=== PATIENT | female | born 1990 | race Caucasian/White ===

== ENCOUNTER → 2018-02-24 10:07 | Outpatient (CLI) | payer MEDICAID, SELFPAY ==
[2018-02-24 12:22] LABS: Absolute Lymphocyte Count 1.11 X10^3/ul (0.83-4.51); Absolute Neutrophil Count 1.8 X10^3/uL (2.0-7.7); Basophil# 0.02 X10^3/uL; Basophil% 0.6 % (0-1); Eosinophil# 0.08 X10^3/uL; Eosinophils% 2.4 % (0-5); Hematocrit 38.7 % (37-47); Hemoglobin 12.8 g/dl (12.0-15.0); Lymphocyte # 1.11 X10^3/ul (4.0); Lymphocyte % 33.1 % (19-41); Mean Corp Hgb Conc 33.1 g/gl (32-36); Mean Corpuscular Hgb 29.6 pg (27.0-32.0); Mean Corpuscular Volume 89.4 fL (81-99); Mean Platelet Vol. 12.6 fl (6.2-12.0); Monocyte# 0.33 X10^3/uL; Monocyte% 9.9 % (0-10); Neutrophil # 1.81 X10^3/uL (2.7-7.7); Platelet Count 192 K/mm3 (150-450); RBC Distribution Width CV 13.3 % (11.6-14.6); Red Blood Count 4.33 M/mm3 (4.2-5.4); White Blood Count 3.4 K/mm3 (4.4-11.0)
[2018-02-24 12:26] LABS: ALB/GLOB Ratio 1.1 RATIO (0.9-2.4); AST(SGOT) 15 U/L (15-37); Alanine Aminotransfer ALT/SGPT 22 U/L (13-56); Alkaline Phosphatase 63 U/L (45-117); Anion Gap 8 (5-15); BUN 11 mg/dL (7-18); BUN/Creat Ratio 13.9 RATIO (10-20); Calcium,Total 9.1 mg/dL (8.5-10.1); Chloride 107 mmol/L (98-107); Creatinine, Serum 0.79 mg/dL (0.55-1.02); EST Glomerular Filtration Rate 92 mL/min (>60); Est Glom Filt Rate - Afr Amer 112 mL/min (>60); Ferritin 14 ng/mL (8-252); Globulin 3.8 g/dL (2.2-4.2); Glucose 91 mg/dL (74-106); Potassium 3.8 mmol/L (3.5-5.1); Protein, Total 7.8 g/dL (6.4-8.2); Sodium Level 140 mmol/L (136-145); T4 Free Direct 0.99 ng/dL (0.76-1.46); Thyroid Stim Hormone (TSH) 2.01 uIU/mL (0.358-3.74)
[2018-02-24 12:27] LABS: POSITIVE COUNT NO; POSITIVE DIFFERENTIAL NO; POSITIVE MORPHOLOGY NO
== END ==
PROVIDERS: Family Provider Family Medicine; PCP Family Medicine; Visit Provider Family Medicine
DX: F41.1 Generalized anxiety disorder (principal); K59.00 Constipation, unspecified
CPT/HCPCS: 36415; 80053; 82728; 84439; 84443; 85025

== ENCOUNTER 2018-08-12 18:25 | Emergency (ER) | payer MEDICAID, SELFPAY ==
[2018-08-12 18:29] VITALS: BP 108/80; PULSE 76; RESP 18; TEMP 36.9; O2SAT 96; BMI 24.2
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
[2018-08-12] MEDS: LORazepam 0.5 MG Tablet PO (19:20)
[2018-08-12] MEDS: Diphth,Pertuss(Acell),Tet Vac 0.5 ML Vial IM (19:20)
[2018-08-12] MEDS: Ketorolac 30 MG/ML Syringe IM (19:20)
[2018-08-12 21:01] VITALS: BP 118/70; PULSE 70; RESP 14; O2SAT 98
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
[2018-08-12 22:42] VITALS: RESP 18
== END 2018-08-12 22:43 | disposition home or self-care (01) ==
PROVIDERS: Emergency Provider Emergency Medicine; Family Provider Family Medicine; PCP Family Medicine
DX: S09.90XA Unspecified injury of head, initial encounter (principal); S13.9XXA Sprain of joints and ligaments of unspecified parts of neck, initial encounter; V49.88XA Car occupant (driver) (passenger) injured in other specified transport accidents, initial encounter; Y93.89 Activity, other specified; Y92.410 Unspecified street and highway as the place of occurrence of the external cause; F41.9 Anxiety disorder, unspecified
CPT/HCPCS: 70450; 72125; 90471; 90715; 96372; 99284

== ENCOUNTER → 2019-02-24 16:43 | Outpatient (CLI) | payer MEDICAID, SELFPAY ==
[2019-02-24 15:13] VITALS: BMI 24.2
[2019-03-02 17:41] LABS: HPV Reflexed? NOT INDICATED
== END ==
PROVIDERS: Family Provider Family Medicine; PCP Family Medicine; Referring Provider Obstetrics & Gynecology; Visit Provider Obstetrics & Gynecology
DX: Z12.4 Encounter for screening for malignant neoplasm of cervix (principal)
CPT/HCPCS: 87624; 88175; G0145

== ENCOUNTER → 2019-10-15 12:16 | Outpatient (CLI) | payer MEDICAID, SELFPAY ==
[2019-02-24 15:13] VITALS: BMI 24.2
--- NOTE | 2019-10-15 12:21 | US_ITS ---
STUDY: ULTRASOUND OF THE FEMALE PELVIS - COMPLETE REASON FOR EXAM: Female, 29 years old. . Chronic left lower quadrant pain. LMP: September 30, 2019. TECHNIQUE: Transabdominal and Transvaginal TECHNICAL QUALITY: Adequate. COMPARISON: None. FINDINGS: The uterus is anteverted and is in a midline position. The uterus measures 9.3 cm x 5.3 cm x 4.1 cm. There is a 6 mm x 8 mm x 6 mm slightly echogenic focus with a small amount of fluid in the region of the cervix. This may represent a polyp. The endometrium measures 14 mm in thickness, and is hyperechoic. There is no demonstrated endometrial mass. There is no demonstrated myometrial mass. I.U.D. - The patient does not have an I.U.D. The right ovary is visualized. The right ovary measures 2.9 cm x 2.8 cm x 2.4 cm. There is a dominant follicle measuring 1.8 cm x 1.4 cm x 1 cm There is no visualized right adnexal mass or complex lesion. There is normal arterial and normal venous vascularity. The left ovary is visualized. The left ovary measures 2.3 cm x 2.4 cm x 1.2 cm. Dominant follicle in the ovary measuring 1.1 cm x 1 cm x 0.7 cm. There is no visualized left adnexal mass or complex lesion. There is normal arterial and normal venous vascularity. There is no fluid in the cul-de-sac. Polycystic ovary disease: No. US/Transvaginal Non- IMPRESSION: Findings suggestive of a 6 mm x 8 mm x 6 mm polyp in the endocervical canal. Small bilateral ovarian follicles. Electronically Signed: Toby Reece, at 14:46 EST , Service support ,
--- NOTE | 2019-10-15 12:21 | US_ITS ---
STUDY: ULTRASOUND OF THE FEMALE PELVIS - COMPLETE REASON FOR EXAM: Female, 29 years old. . Chronic left lower quadrant pain. LMP: September 30, 2019. TECHNIQUE: Transabdominal and Transvaginal TECHNICAL QUALITY: Adequate. COMPARISON: None. FINDINGS: The uterus is anteverted and is in a midline position. The uterus measures 9.3 cm x 5.3 cm x 4.1 cm. There is a 6 mm x 8 mm x 6 mm slightly echogenic focus with a small amount of fluid in the region of the cervix. This may represent a polyp. The endometrium measures 14 mm in thickness, and is hyperechoic. There is no demonstrated endometrial mass. There is no demonstrated myometrial mass. I.U.D. - The patient does not have an I.U.D. The right ovary is visualized. The right ovary measures 2.9 cm x 2.8 cm x 2.4 cm. There is a dominant follicle measuring 1.8 cm x 1.4 cm x 1 cm There is no visualized right adnexal mass or complex lesion. There is normal arterial and normal venous vascularity. The left ovary is visualized. The left ovary measures 2.3 cm x 2.4 cm x 1.2 cm. Dominant follicle in the ovary measuring 1.1 cm x 1 cm x 0.7 cm. There is no visualized left adnexal mass or complex lesion. There is normal arterial and normal venous vascularity. There is no fluid in the cul-de-sac. Polycystic ovary disease: No. US/Pelvic (Non ) IMPRESSION: Findings suggestive of a 6 mm x 8 mm x 6 mm polyp in the endocervical canal. Small bilateral ovarian follicles. Electronically Signed: Toby Reece, at 14:46 EST , Service support ,
== END ==
PROVIDERS: Family Provider Family Medicine; PCP Family Medicine; Referring Provider Family Medicine; Visit Provider Family Medicine
DX: N83.02 Follicular cyst of left ovary (principal); N83.01 Follicular cyst of right ovary
CPT/HCPCS: 76830; 76856; 93976

== ENCOUNTER → 2020-02-16 10:53 | Outpatient (CLI) | payer MEDICAID, SELFPAY ==
[2019-12-24 13:07] VITALS: BMI 24.2
== END ==
PROVIDERS: PCP Family Medicine; Referring Provider Nurse Practitioner Family; Visit Provider Nurse Practitioner Family
DX: R50.9 Fever, unspecified (principal); M79.10 Myalgia, unspecified site; R53.83 Other fatigue; R11.0 Nausea
CPT/HCPCS: 87804; 94799

== ENCOUNTER 2020-03-05 17:05 | Emergency (ER) | payer MEDICAID, SELFPAY ==
[2019-12-24 13:07] VITALS: BMI 24.2
[2020-03-05 17:06] VITALS: BP 126/67; PULSE 78; RESP 16; TEMP 36.7; BMI 23.3
[2020-03-05 18:24] LABS: Mucous, Urine 0 SEEN /hpf (<or=2+)
[2020-03-05] MEDS: 0.9% Normal Saline 1,000 ML 1000 ML IV (18:24)
[2020-03-05 18:34] LABS: Absolute Lymphocyte Count 0.73 X10^3/uL (0.83-4.51); Absolute Neutrophil Count 6.8 X10^3/uL (2.0-7.7); Basophil# 0.02 X10^3/uL; Basophil% 0.2 % (0-1); Eosinophil# 0.02 X10^3/uL; Eosinophils% 0.2 % (0-5); Hematocrit 38.2 % (37-47); Hemoglobin 12.5 g/dL (12.0-15.0); Lymphocyte # 0.73 X10^3/ul (4.0); Lymphocyte % 8.5 % (19-41); Mean Corp Hgb Conc 32.7 g/dL (32-36); Mean Corpuscular Hgb 31.5 pg (27.0-32.0); Mean Corpuscular Volume 96.2 fL (81-99); Mean Platelet Vol. 11.9 fl (6.2-12.0); Monocyte# 0.92 X10^3/uL; Monocyte% 10.7 % (0-10); NRBC Flagged by Analyzer 0 % (0-5); Neutrophil # 6.84 X10^3/uL (2.7-7.7); Platelet Count 168 K/mm3 (150-450); RBC Distribution Width CV 13.1 % (11.6-14.6); RBC Distribution Width SD 45.7 fl (35.1-43.9); Red Blood Count 3.97 M/mm3 (4.2-5.4); White Blood Count 8.6 K/mm3 (4.4-11.0)
[2020-03-05 18:39] LABS: Color, Urine Straw (Yellow); Glucose, Dipstick Normal (Normal); Ketone-Dipstick Negative (Negative); Leukocyte Esterase-Dipstick 500 /ul (Negative); Nitrite-Dipstick Negative (Negative); Occult Blood-Urine 50 /ul (Negative); Protein-Dipstick 15 mg/dl (Negative); Specific Gravity, Urine 1.005 (1.002-1.030); Urine Bilirubin Dipstick Negative (Negative); Urine Clarity Sl. Cloudy (Clear); Urine Urobilinogen Normal (Normal)
[2020-03-05 18:47] LABS: White Blood Cells 50-100 SEEN /hpf (0-5)
[2020-03-05 18:48] LABS: Bacteria 2+ /hpf (None Seen); Lactic Acid 1.2 mmol/L (0.4-1.9); Red Blood Cells-Urine 0-5 SEEN /hpf (0-5); Squamous Epithelial Cells - UA 0-5 SEEN /hpf (5-10)
[2020-03-05 18:49] LABS: Internal QC Validated? YES +Cl - CLEAR BKGD; Pregnancy, Serum, hCG Quali. NEGATIVE Negative
--- NOTE | 2020-03-05 18:49 | ED.VISSUMM ---
- ER Visit Summary Date of Service: 03/05/20 Chief Complaint: Fever History of Present Illness: The patient is a [address] Jerry Atwood. Patient reports that she has not felt well for the past 2 weeks. States that 2 weeks ago she had abrupt onset of fever, chills, and myalgias. She had a virtual visit and had a flu swab that was negative. She felt better after a few days. Patient reports that 1 week ago she developed low back pain. She describes it as a dull, aching pain is 8 of 10 at worst and 710 currently. Is increased with laying down. Is decreased with a warm bath. There is no ration to her legs. No numbness, tingling, or weakness. No problems with her bowels or her bladder. She has no groin numbness. Patient reports for the past week she has had dysuria and frequency. And then again yesterday she developed chills, myalgias, and fever. She reports her temperatures been 102.3 degrees. She also reports that she had 2 episode diarrhea in the past 24 hours. Patient has been in self-isolation. She has not had sick contacts. She is working from home. Physical Examination: Vitals: Stable. Afebrile. General: Well-nourished and well-developed. Head: Normocephalic atraumatic. Neck: Supple, no lymphadenopathy. No JVD. Nontender. Cardiovascular: Regular rate and rhythm. No murmurs. Respiratory: No respiratory distress. Clear to auscultation bilaterally. Abdominal: Soft, nontender, nondistended, normal bowel sounds. No guarding, rebound, or peritoneal signs. Back: No CVA tenderness. Mild tenderness palpation to the paraspinous muscular and lumbar region bilaterally. Extremities: Nontender, no edema. Skin: Normal color, no rash. Neurologic: Alert and oriented ?3. Cranial nerves II through XII are intact. Normal strength and sensation. Psych: Normal affect. Test Results: CBC shows segmented feels 80 lymphocytes of 6. UA does show UTI. Her lactic acid is 1.2. Emergency Department Course and Treatment: Patient had an IV placed. She is given a liter normal saline. She was given Rocephin IV. Her urine was sent for culture. Treatment Plan: Patient will be discharged with Pyridium and Keflex. Instructed to follow-up with Dr. Atwood in 1 week for another exam. Return to the emergency department for any worsening symptoms. Disposition: To home in improved and stable condition. Impression: 1 1. UTI. 2. Low back pain. This note was generated with [employer] dictation software. It may contain incorrect words, spelling, and punctuation that were not noted in review of the chart prior to signing ED Disposition - Plan for ED Patient: Instructions: ED CYSTITIS Female Adult Prescriptions: Cephalexin [Keflex] 500 mg PO Q12 #14 capsule Phenazopyridine HCl [Pyridium] 200 mg PO BID PRN PRN #10 tablet PRN Reason: Pain Referrals: Jerry Atwood MD [Primary Care Provider] - 1 Week
[2020-03-05 18:54] LABS: Anion Gap 4 (5-15); BUN 10 mg/dL (7-18); BUN/Creat Ratio 12.3 RATIO (10-20); Calcium,Total 9.4 mg/dL (8.5-10.1); Chloride 108 mmol/L (98-107); Creatinine, Serum 0.81 mg/dL (0.55-1.02); EST Glomerular Filtration Rate 89 mL/min (>60); Est Glom Filt Rate - Afr Amer 107 mL/min (>60); Estimated Creatinine Clearance 95.94 ml/min; Glucose 89 mg/dL (74-106); Sodium Level 140 mmol/L (136-145)
[2020-03-05] MEDS: Phenazopyridine 95 MG Tablet 190 MG PO (19:18)
[2020-03-05] MEDS: Ceftriaxone 1 GM/50 ML BAG IV (19:18)
[2020-03-05 19:50] VITALS: BP 118/77; PULSE 96; RESP 18; O2SAT 98
== END 2020-03-05 19:52 | disposition home or self-care (01) ==
PROVIDERS: Emergency Provider Emergency Medicine; PCP Family Medicine
DX: N39.0 Urinary tract infection, site not specified (principal); M54.5 Low back pain
CPT/HCPCS: 80048; 81001; 83605; 84703; 85025; 86140; 87086; 87088; 87186; 96365; 99284; J7030; J7050; A4216

== ENCOUNTER → 2020-03-10 | Outpatient (CLI) | payer MEDICAID, SELFPAY ==
[2020-03-10 08:55] VITALS: BMI 23.3
== END | disposition home or self-care (01) ==
LOC: LABSPEC 16:44
PROVIDERS: PCP Family Medicine; Referring Provider Obstetrics & Gynecology; Visit Provider Obstetrics & Gynecology
DX: N89.8 Other specified noninflammatory disorders of vagina (principal)
CPT/HCPCS: 87070; 87205

== ENCOUNTER → 2020-03-16 12:16 | Outpatient (CLI) | payer MEDICAID, SELFPAY ==
[2020-03-10 08:55] VITALS: BMI 23.3
--- NOTE | 2020-03-16 12:17 | US_ITS ---
STUDY: THYROID ULTRASOUND REASON FOR EXAM: Female, 29 years old. THYROMEGALY TECHNIQUE: Ultrasound evaluation of the thyroid was performed with real-time and static mullen-scale imaging. COMPARISON: None. FINDINGS: RIGHT LOBE: The right lobe of the thyroid gland measures 4.5 cm x 1.7 cm x 1.2 cm. There is a homogeneous echotexture. There are no demonstrated solid, cystic or complex lesions. LEFT LOBE: The left lobe of the thyroid gland measures 4.3 cm x 1.7 cm x 1.1 cm. There is a homogeneous echotexture. There are no demonstrated solid, cystic or complex lesions. ISTHMUS: The isthmus measures 2.0 mm. The regional lymph nodes are normal. US/Thyroid IMPRESSION: Normal ultrasound examination of the thyroid. Electronically Signed: Toby Reece, at 12:42 EDT , Service support ,
== END ==
PROVIDERS: PCP Family Medicine; Referring Provider Obstetrics & Gynecology; Visit Provider Obstetrics & Gynecology
DX: E04.9 Nontoxic goiter, unspecified (principal)
CPT/HCPCS: 76536

== ENCOUNTER 2020-03-28 09:42 | Day surgery (SDC) | payer MEDICAID, SELFPAY ==
[2019-12-24 13:07] VITALS: BMI 24.2
[2020-03-10 08:55] VITALS: BMI 23.3
[2020-03-28] VITALS (9 sets, daily range): BP systolic 99–120; BP diastolic 64–73; PULSE 67–95; RESP 15–18; TEMP 36.4–37; O2SAT 98–100; BMI 23.2
--- NOTE | 2020-03-28 | EMB_PTH ---
PATIENT: VIVIANA MONAE [place] [facility] [place][id number] AGE/SX: 29/F ROOM: RE03/28/[address]: Dr. María Da Silva MD : 1990 BED: DIS: 03/28/2020 SPEC #: [id number] RECD: 03/28/20 14:55 STATUS: PEPE AJCecilia #: [id number] MAULIK: 03/28/20 00:[address]: María Da Silva DEPT: SURGICAL PATHOLOGY RECD BY: Yadiel Maloney ENTERED: 03/29/20 12:02 SP TYPE: ENDOM BX/C OTHR DR: Dr. Jerry Atwood MD Tissues: A - Endometrium, NOS B - Endometrium, NOS Procedures: Surgery Specimen Level IV HEADER OPERATION: Hysteroscopy, Symphion D & C, polypectomy, IUD PRE-OP DIAGNOSIS: Endocervical polyp; endometriosis TISSUE SUBMITTED: A - Endometriosis lesion biopsy, abdomen, B - Endometrial curettings, polyp MICROSCOPIC DIAGNOSIS A. Lesion of abdomen, biopsy: Endometriosis. B. Endometrial curettings and polyp, excision: Polypoid fragments of proliferative endometrium. Rare fragments of benign superficial endocervix with squamous metaplasia. AM:eric 03/30/20 MICROSCOPIC DESCRIPTION Slides are reviewed. GROSS DESCRIPTION A - Received in fixative is one container labeled with the patient's name and designated endometriosis lesion biopsy. The specimen consists of multiple fragments of hemorrhagic soft tissue that in aggregate measure 1.5 x 0.6 x 0.2 cm. The specimen is totally submitted in one cassette. B - Received in fixative is one container labeled with the patient's name and designated endometrial curettings, polyp. The specimen consists of multiple fragments of hemorrhagic soft tissue that in aggregate measure 5 x 3 x 0.3 cm. The entire specimen is submitted in two cassettes. / SJ:eric 03/29/20 TC:5 CPT: 22459 x2
--- NOTE | 2020-03-28 07:57 | HP.PCM_ITS ---
- Problem List (1) Endocervical polyp Status: Acute Comment: plan d and c hysteroscopy polypectomy (2) Endometriosis Status: Acute Comment: high suspicion, discussed hormones vs depot lupron vs laparoscopy. recommend starting OCP and schedule surgery. 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 María Da Silva MD) Smoking Status: Never smoker alcohol intake: never substance use type: does not use caffeine: Yes what type of physical activity do you participate in: walking seatbelt use: always do you feel safe at home: Yes additional social history: Torito Fallon Patient works at [employer] Pregancy History 1 Elective abortions Hx Para 1 Spontaneous abortions Hx # Term Pregnancies Ectopic pregnancies Hx # Pregnancies Multiple births # of living children Past Pregnancies Del. Date Name GA/Weeks Outcome Route Bth Weight Infant Gen Labor Lgth Anesthesia Del [facility] Provider FOB Unknown 2016 [place] live - full term NSV D [facility] [place] [facility] ANNUAL EXAM: Details: VIVIANA MONAE is a 29 year old who presents for annual exam. she had a recent pyelonephritis. she was originally supposed to have surgery for endometriosis but it was cancelled due to her infection. Last PAP: 02/19 nl History of abnormal PAP: no Other preventative health care screenings: pcp- Dr Atwood Female Reproductive History Cycle Length: 21-35 Bleeding Duration: 5 Control Method: none associated symptoms: severe dysmenorrhea Questions: Metorrhagia: No, Sexually active: Yes, Dyspareunia: Yes, PCB: No Menopausal Symptoms: No hot flashes, No night sweats, No weight change, No mood changes, No difficulty concentrating, No sleep problems, No change in libido ROS Const Constitutional: Reports as per HPI and fatigue; denies increased appetite, poor appetite, night sweats, weight gain or weight loss Cardio Card: Denies chest pain Resp Resp: Denies cough or dyspnea GI GI: Reports as per HPI; denies abdominal pain, bloating, constipation, nausea or vomiting : Reports as per HPI and other; denies difficulty urinating, painful urination, blood in urine, hot flashes, nipple discharge, pelvic pain, prolapse symptoms, urinary frequency, urinary incontinence, urinary urgency, vaginal discharge, vaginal dryness, vaginal odor or vaginal itching Skin Skin/Breast: Denies changing lesions, breast lump, breast pain, breast skin changes or nipple discharge Psych Psych: Denies anxiety, change in sex drive, depression or difficulty concentrating Exam Const General: cooperative, healthy appearing, comfortable, no acute distress, well developed, well groomed HENKS Head: normal to inspection, normocephalic Ears: hearing grossly normal bilaterally, external ears normal Nose: external nose normal Face and sinus: normal facial exam Neck Neck: normal visual inspection, full ROM, no lymphadenopathy Thyroid: thyroid normal Chest Chest palpation & inspection: normal inspection of the chest Breast inspection: normal inspection of the breasts, normal inspection of the axillae Breast palpation: normal palpation of the breasts, normal palpation of the axillae, no axillary lymphadenopathy Resp Effort & Inspection: normal respiratory effort GI Inspection: normal to inspection, non-distended Palpation: soft, no hepatosplenomegaly, no guarding General: bladder normal to palpation External Female Exam: normal external appearance, normal appearance of the urethra, no lesions Urethra: normal appearance of the urethra, normal palpation Speculum Exam - Vagina: normal appearance of the vagina, abnormal vaginal discharge white and caseous Speculum Exam - Cervix: normal appearance of the cervix, no cervical discharge, no lesions, nontender Bimanual Exam- Vagina & Uterus: normal bimanual exam, uterine size normal, bladder normal to palpation, No cervical tenderness, uterine mobility normal, uterine consistency normal, uterus non-tender, no cervical motion tenderness Bimanual Exam- Adnexa, other: normal adnexae, no adnexal masses, adnexae non- tender Skin General: no rashes or lesions noted Neuro General: alert, moves all extremities, no focal motor deficits Extrem General: normal to inspection, no pedal edema Psych Appearance: grossly normal Mental Status: mental status grossly normal Affect: normal affect Speech and Movement: speech and movement normal Attitude: cooperative Assessment & Plan Problems 1. Endometriosis N80.9 high suspicion, discussed hormones vs depot lupron vs laparoscopy. recommend starting OCP and schedule surgery. 2. Endocervical polyp N84.1 plan d and c hysteroscopy polypectomy 3. Encounter for gynecological examination (general) (routine) with abnormal findings Z01.411 4. Vaginal discharge N89.8 Plan plan diagnostic laparoscopy d and c hysteroscopy possible insertion of IUD. After discussing the patient's diagnosis and treatment plan options, patient wishes to proceed with surgical management. I have discussed with the patient the risks, benefits, and alternatives of the procedure which include but are not limited to risks of anesthesia, bleeding, infection, possible damage to bowel, bladder, or surrounding vasculature which could lead to additional surgery to evaluate any complications. Patient agrees to procedure and wishes to proceed. ACOG/uptodate references given for additional information regarding procedure. Coding Level of Care Code Off vis,est,prev 18-39yrs Diagnoses Endometriosis N80.9 Endocervical polyp N84.1 Encounter for gynecological examination (general) (routine) with abnormal findings Z01.411 Vaginal discharge N89.8 Procedure Criteria Procedure Type: Elective COVID Risk Discussion: The surgeon/proceduralist and patient have discussed in detail the risk of exposure to and/or potential harm posed by the COVID-19 virus with having a surgery/procedure at this time versus the risk of delaying the surgery/procedure. It is not possible to know either the risk of delaying the surgery or procedure or chance of getting an infection with perfect accuracy, but a joint decision was made between the patient and the surgeon/proceduralist to proceed at this time with the scheduled surgery/procedure as indicated on the consent form.
[2020-03-28 10:12] LABS: Hematocrit 38.1 % (37-47); Hemoglobin 12.4 g/dL (12.0-15.0); Mean Corp Hgb Conc 32.5 g/dL (32-36); Mean Corpuscular Hgb 30.8 pg (27.0-32.0); Mean Corpuscular Volume 94.5 fL (81-99); Mean Platelet Vol. 11.7 fl (6.2-12.0); Platelet Count 193 K/mm3 (150-450); RBC Distribution Width CV 13.2 % (11.6-14.6); RBC Distribution Width SD 45.8 fl (35.1-43.9); Red Blood Count 4.03 M/mm3 (4.2-5.4); White Blood Count 4.9 K/mm3 (4.4-11.0)
[2020-03-28] MEDS: Lactated Ringers 1,000 ML 125 ML IV ×3 (10:36→13:58)
[2020-03-28 10:50] LABS: Internal QC Validated? YES +Cl - CLEAR BKGD; Pregnancy, Serum, hCG Quali. NEGATIVE Negative
--- NOTE | 2020-03-28 11:38 | PCM.OPRPT ---
Problem List (1) Endocervical polyp Status: Acute Comment: plan d and c hysteroscopy polypectomy (2) Endometriosis Status: Acute Comment: high suspicion, discussed hormones vs depot lupron vs laparoscopy. recommend starting OCP and schedule surgery. Report of Operation Date of Procedure: 03/28/20 Pre-Operative Diagnosis: aub pelvic pain Post-Operative Diagnosis: same plus stage IV endometriosis Surgery/Procedure Performed:: d and c hysteroscopy diagnostic laparoscopy IUD insertion Description of Surgical Findings:: Left sigmoid to pelvic sidewall adhesions. Endometriosis implants on bilateral ovaries fallopian tubes and partial obliteration of the cul-de-sac with endometriosis lesions and rectosigmoid lesions seen. Type of Anesthesia:: General Special Medications: Maninder Specimen's removed: EMC Drains: none Estimated Blood Loss (mL): 50 Fluids Replaced: crystalloid Description of Procedure: Patient was taken in the operating room and placed under general anesthesia was prepped and draped in normal sterile fashion in the dorsal sodomy position. Bladder drained of clear urine and uterine manipulator placed inside the uterus. Umbilicus was injected with Marcaine and 5 mm incision made varies needle entered into the abdomen confirmed the intra-abdominal with a opening pressure of 3 mmHg. Abdomen is inflated CO2 gas and a 5 mm port was placed followed by a left lower quadrant and suprapubic 5 mm ports x2. Significant amount of endometriosis lesions were noted particularly in the posterior cul-de-sac with some rectosigmoid and posterior uterine bilateral ovarian and fallopian tube implants. There was some old endometriosis lesions on the left pelvic sidewall with some adhesions of the sigmoid colon to the left pelvic sidewall. These were taken down with the LigaSure device. Multiple endometriosis lesions were both cauterized and then resected and sent to pathology for analysis. Patient's right fallopian tube was noted to be clubbed and adherent to the ovary and the ovary adherent to the ovarian fossa. Left fallopian tube appeared to be within normal limits at the fimbria. Ovary had some endometriosis implants that again were all ablated and treated. Maninder was placed over the cul-de-sac areas and some of the rectosigmoid lesions were not able to be resected due to their deep infiltrating location right above the colon. Rest of the abdomen was then inspected and noted to be within normal limits. All instruments were removed from the abdomen after desufflated the abdomen and port sites were closed with 3-0 Monocryl. Dermabond applied. Uterine manipulator removed and a hysteroscopy was performed and a large amount of polypoid material was seen and this was removed using polyp forceps and performing a sharp curettage. All tissue sent to pathology for analysis and repeat hysteroscopy was done and lining visualized and noted to be within normal limits. Liletta IUD inserted to 8 cm without difficulty and the strings trimmed to 3 cm. Instruments removed from the vagina patient was awoken and taken recovery in stable condition Grafts/Implants Used: liletta IUD - Complications none - Admit VTE Documentation VTE Present on Admission: No VTE Mechan Device Prophylaxis: SCD's Multi Select Codes - Urinary/Genital Urinary/Genital CPT Codes: 19101 Insert IUD, 53046 Hysteroscopy,EMC, Polypectomy, 14242 Laproscopic ablation endometriosis
--- NOTE | 2020-03-28 11:40 | DCINST_ITS ---
Discharge Diet: No Restrictions Discharge Activity: Return to Normal Activity, May Shower, May Take a Tub Bath Allergies/Adverse Reactions: Allergies No Known Allergies Allergy (Verified 03/28/20 10:24) Medications to take at Discharge NK 03/21/20 Orders to be completed after discharge: Type & Screen Time Frame: 03/28/20, Facility: [facility], Location: Laboratory CBC-Complete Blood Cnt No Diff Time Frame: 03/28/20, Facility: [facility], Location: Laboratory Primary Care Physician: Jerry Atwood MD [Primary Care Provider] - Test Results: Test results from this visit will be discussed in further detail at your follow- up appointment, if applicable. Please Follow Up With: María Da Silva MD - [phone]
[2020-03-28] MEDS: Levonorgestrel IUD (Liletta) 1 EACH IY (12:00)
[2020-03-28] MEDS: Bupivacaine 0.25% 30 ML Vial (12:40)
== END 2020-03-28 15:22 | disposition home or self-care (01) ==
LOC: SDC 09:44 → AC 09:44
PROVIDERS: PCP Family Medicine; Referring Provider Obstetrics & Gynecology; Visit Provider Obstetrics & Gynecology
PROC: 0UB98ZZ Excision of Uterus, Via Natural or Artificial Opening Endoscopic (ICD-10-PCS; CPT 58558; principal; 2020-03-28 11:00)
DX: N80.9 Endometriosis, unspecified (principal); N84.1 Polyp of cervix uteri; N89.8 Other specified noninflammatory disorders of vagina
CPT/HCPCS: 00952; 58300; 58563; 84703; 85027; 86850; 86900; 86901; 88305; J7120; J2405

== ENCOUNTER → 2020-04-24 16:31 | Outpatient (CLI) | payer MEDICAID, SELFPAY ==
[2020-04-14 14:58] VITALS: BMI 23.2
[2020-04-24 18:28] LABS: Microalbumin,Random Urine 19.9 mg/L (NO RANGE EST.)
== END ==
PROVIDERS: PCP Family Medicine; Referring Provider Family Medicine; Visit Provider Family Medicine
DX: R10.31 Right lower quadrant pain (principal)
CPT/HCPCS: 82043; 87086; 87088

== ENCOUNTER → 2020-04-29 10:27 | Outpatient (CLI) | payer MEDICAID, SELFPAY ==
[2020-04-14 14:58] VITALS: BMI 23.2
--- NOTE | 2020-04-29 10:27 | US_ITS ---
STUDY: ULTRASOUND OF THE FEMALE PELVIS - COMPLETE REASON FOR EXAM: Female, 29 years old. IUD CHECK LOST STRING HAD 1 MONTH LLQ PAIN LMP: 04/05/2020 TECHNIQUE: Transabdominal and Transvaginal TECHNICAL QUALITY: Adequate. COMPARISON: 10/15/2019 FINDINGS: The uterus is anteverted and is in a midline position. The uterus measures 8.2 x 5.5 x 4.2 cm. Normal uterine cervix. The endometrium measures 4 mm in thickness, and is hyperechoic. There is no demonstrated endometrial mass. There is no demonstrated myometrial mass. I.U.D. - The patient does have an I.U.D. The right ovary is visualized. The right ovary measures 4.8 x 2.6 x 2.5 cm. Right ovary cyst measuring 15 x 14 x 14 mm and 17 x 16 x 15 mm. There is no visualized right adnexal mass or complex lesion. There is normal arterial and normal venous vascularity. The left ovary is visualized. The left ovary measures 2.0 x 1.3 x 1.1 cm. There is no left ovarian cyst or ovarian mass. There is no visualized left adnexal mass or complex lesion. There is normal arterial and normal venous vascularity. There is no fluid in the cul-de-sac. The pre void volume of the bladder was 94.62 ml. The post void volume of the bladder was ml. Polycystic ovary disease: No. US/Transvaginal Non- IMPRESSION: IUD is in the expected location. Right ovary cyst measuring 15 x 14 x 14 mm and 17 x 16 x 15 mm. Electronically Signed: Rodrigo Birmingham MD at 23:28 EDT Tel , Service support ,
== END ==
PROVIDERS: PCP Family Medicine; Referring Provider Obstetrics & Gynecology; Visit Provider Obstetrics & Gynecology
DX: R10.2 Pelvic and perineal pain (principal)
CPT/HCPCS: 76830

== ENCOUNTER → 2020-05-03 14:50 | Outpatient (CLI) | payer MEDICAID, SELFPAY ==
[2020-04-14 14:58] VITALS: BMI 23.2
--- NOTE | 2020-05-03 14:53 | US_ITS ---
STUDY: RENAL ULTRASOUND - COMPLETE REASON FOR EXAM: Female, 29 years old. Right pyelonephritis. TECHNIQUE: Ultrasound evaluation of the kidneys was performed with real-time and static alexander-scale imaging. COMPARISON: None. FINDINGS: RIGHT KIDNEY: Normal location of the right kidney, which is normal in size. The right kidney measures 11.3 cm. There is a normal cortex of the right kidney. No evidence of hypoechogenicity suggest pyelonephritis. The renal cortex measures 1.2 cm. There is no right renal mass or cyst. There are no right renal calculi. There is no right hydronephrosis. DISTAL RIGHT URETER: There is non-visualization of the distal right ureter. There is no demonstrated right ureterovesical junction calculus. There is a visualized right ureteral jet. LEFT KIDNEY: Normal location of the left kidney, which is normal in size. The left kidney measures 10.1 cm. There is a normal cortex of the left kidney. The renal cortex measures 1.8 cm. There is no left renal mass or cyst. There are no left renal calculi. There is no left hydronephrosis. DISTAL LEFT URETER: There is non-visualization of the distal left ureter. There is no demonstrated left ureterovesical junction calculus. There is a visualized left ureteral jet. BLADDER: The distended urinary bladder has a volume of 276 ml. There is a normal wall thickness of the distended urinary bladder. There is no demonstrated mass within the urinary bladder. There are no demonstrated bladder calculi. US/Kidney and Bladder IMPRESSION: Normal ultrasound of the kidneys and urinary bladder. Electronically Signed: Ricardo Vuong DO at 16:14 EDT Tel [phone], Service support ,
== END ==
PROVIDERS: PCP Family Medicine; Referring Provider Family Medicine; Visit Provider Family Medicine
DX: N12 Tubulo-interstitial nephritis, not specified as acute or chronic (principal)
CPT/HCPCS: 76770

== ENCOUNTER → 2020-05-11 | Outpatient (CLI) | payer MEDICAID, SELFPAY ==
[2020-05-11 15:47] VITALS: BMI 23.2
[2020-05-11 20:30] LABS: Chlamydia Trachomatis by PCR Negative (Negative); Neisserai gonorrhoeae by PCR Negative (Negative); Probe Check PASS; Sample Adequacy Control PASS; Specimen Processing Control PASS
== END | disposition home or self-care (01) ==
LOC: LABSPEC 16:29
PROVIDERS: PCP Family Medicine; Referring Provider Obstetrics & Gynecology; Visit Provider Obstetrics & Gynecology
DX: Z11.3 Encounter for screening for infections with a predominantly sexual mode of transmission (principal)
CPT/HCPCS: 87491; 87591

== ENCOUNTER → 2020-10-05 | Outpatient (CLI) | payer MEDICAID, SELFPAY ==
[2020-10-05 11:25] VITALS: BMI 22.7
== END | disposition home or self-care (01) ==
LOC: LABSPEC 16:19
PROVIDERS: PCP Family Medicine; Referring Provider Obstetrics & Gynecology; Visit Provider Obstetrics & Gynecology
DX: N89.8 Other specified noninflammatory disorders of vagina (principal)
CPT/HCPCS: 87070; 87077; 87205

== ENCOUNTER 2020-11-19 21:17 | Emergency (ER) | payer MEDICAID, SELFPAY ==
[2020-10-05 11:25] VITALS: BMI 22.7
[2020-11-19 21:18] VITALS: BP 116/86; PULSE 85; RESP 15; TEMP 35.7; O2SAT 97; BMI 21.7
--- NOTE | 2020-11-19 21:41 | ED.DCSUM_ITS ---
History of Present Illness Chief Complaint: Flank Pain Informant: Patient Narrative: 80-year-old female presenting with left flank pain, dysuria. Patient states this started this morning. She states he has maybe some mild chills but denies had fever, nausea, vomiting. Patient is unsure if she could be or not. Patient has had no change in bowel habits. Patient does relate a history of pyelonephritis about 6 months ago and was treated outpatient with a 14-day supply of antibiotics. She cannot recall the name of the antibiotic. Past Medical History - Allergies and Home Meds Allergies/Adverse Reactions: Allergies No Known Allergies Allergy (Verified 10/05/20 11:25) Primary Care Physician: Jerry Atwood MD [Primary Care Provider] - Prior records reviewed: Yes Past Medical History: - - Edy cyst, pyelonephritis Surgical History: noncontributory Lives: Spouse/ Significant Other Smoking Status: Never smoker Alcohol: None Drugs: None Review of Systems General: Reports: Chills. Denies: Fever, Malaise Eyes: Denies: Visual changes - bilaterally, Diplopia ENT: Denies: Rhinorrhea, Sore throat Cardiovascular: Denies: Chest pain, Palpitations Respiratory: Denies: Dyspnea, Cough, Dyspnea on exertion Gastrointestinal: Reports: Abdominal pain. Denies: Nausea, Vomiting, Diarrhea, Constipation Genitourinary: Reports: Dysuria, Hematuria, Frequency Musculoskeletal: Denies: Back pain, Extremity Pain Skin: Denies: Rash, Wounds Neurological: Denies: Headache, Weakness, Numbness Psych: Denies: Depression, Anxiety, Suicidal thoughts, Suicidal ideations, -, - Physical Exam Vital Signs/Narrative: Vital Signs Temp Pulse Resp BP Pulse Ox 11/19/20 21:18 96.3 F L 85 15 116/86 H 97 Inital Vital Signs reviewed: Yes General: Well nourished, No Acute Distress Head: Normocephalic, Atraumatic Eyes: Perrl, EOMI ENT: Moist mucous membranes, No rhinorrhea Cardiovascular: Regular rate, Regular rhythm Respiratory: No distress, CTA bilaterally Abdomen: Soft, Nontender Back: CVA tenderness - Left. Negative for: Spinal tenderness Extremities: Nontender, No edema Skin: Normal color, No rash Neurological: Alert, Oriented x3, Cranial nerves II-XII grossly intact, Normal Strength, Normal Sensation Psychological: Normal affect, Normal Mood Diagnostic/Tx/Re-eval - Medical Decision Making Patient presents with left-sided flank pain and has left-sided CVA tenderness. She states she has no history of kidney stones but does have history of pyelonephritis. Patient's lab work is unremarkable. Patient's pain treated with Toradol with good relief. She has no nausea. Patient's urinalysis is consistent with infection she does have hematuria. CT abdomen pelvis without contrast shows no hydronephrosis or renal calculi. There is no perinephric stranding. Patient will be treated as early pyelonephritis. She started on Bactrim DS twice daily for 14 days. Patient given first dose in the ED. Impression: 1. Left-sided pyelonephritis ED Disposition - Plan for ED Patient: Disposition: Home or Assisted Living Instructions: ED Pyelonephritis, Female (Adult) Prescriptions: Smz/Tmp Ds [Bactrim Ds] 1 tab PO BID #27 tab Prescription Printed Ondansetron [Zofran Odt] 4 mg PO Q8H PRN PRN #14 tab PRN Reason: Nausea Transmission Status: Received by [facility]/pharmacy #[id number] Referrals: Jerry Atwood MD [Primary Care Provider] -
[2020-11-19 21:46] LABS: Mucous, Urine 0 SEEN /hpf (<or=2+)
[2020-11-19 21:52] LABS: Absolute Lymphocyte Count 1.48 X10^3/uL (0.83-4.51); Absolute Neutrophil Count 5.8 X10^3/uL (2.0-7.7); Basophil# 0.03 X10^3/uL; Basophil% 0.4 % (0-1); Eosinophil# 0.08 X10^3/uL; Hemoglobin 13.9 g/dL (12.0-15.0); Lymphocyte # 1.48 X10^3/ul (4.0); Lymphocyte % 18.1 % (19-41); Mean Corp Hgb Conc 34.8 g/dL (32-36); Mean Corpuscular Hgb 32.9 pg (27.0-32.0); Mean Corpuscular Volume 94.6 fL (81-99); Mean Platelet Vol. 12.2 fl (6.2-12.0); Monocyte# 0.73 X10^3/uL; Monocyte% 8.9 % (0-10); NRBC Flagged by Analyzer 0 % (0-5); Neutrophil # 5.84 X10^3/uL (2.7-7.7); Neutrophil % 71.2 % (47-70); Platelet Count 197 K/mm3 (150-450); RBC Distribution Width CV 12.2 % (11.6-14.6); RBC Distribution Width SD 42.5 fl (35.1-43.9); Red Blood Count 4.23 M/mm3 (4.2-5.4); White Blood Count 8.2 K/mm3 (4.4-11.0)
[2020-11-19 21:53] LABS: Color, Urine Yellow (Yellow); Glucose, Dipstick Normal (Normal); Ketone-Dipstick Negative (Negative); Leukocyte Esterase-Dipstick 500 /ul (Negative); Nitrite-Dipstick Negative (Negative); Occult Blood-Urine 250 /ul (Negative); Protein-Dipstick 15 mg/dl (Negative); Urine Bilirubin Dipstick Negative (Negative); Urine Clarity Clear (Clear); Urine Urobilinogen Normal (Normal)
[2020-11-19] MEDS: Ketorolac 15 MG/ML Vial IV (21:54)
[2020-11-19 21:58] LABS: Red Blood Cells-Urine 10-25 SEEN /hpf (0-5); White Blood Cells 25-50 SEEN /hpf (0-5)
[2020-11-19 21:59] LABS: Bacteria 1+ /hpf (None Seen); Squamous Epithelial Cells - UA 0-5 SEEN /hpf (5-10)
[2020-11-19 22:02] LABS: Internal QC Validated? YES +Cl - CLEAR BKGD
[2020-11-19 22:03] LABS: Pregnancy, Urine Negative Negative
[2020-11-19 22:05] LABS: Anion Gap 5 (5-15); BUN 10 mg/dL (7-18); BUN/Creat Ratio 9.8 RATIO (10-20); Calcium,Total 9.1 mg/dL (8.5-10.1); Chloride 110 mmol/L (98-107); Creatinine, Serum 1.02 mg/dL (0.55-1.02); EST Glomerular Filtration Rate 68 mL/min (>60); Est Glom Filt Rate - Afr Amer 82 mL/min (>60); Glucose 86 mg/dL (74-106); Potassium 3.6 mmol/L (3.5-5.1); Sodium Level 141 mmol/L (136-145)
--- NOTE | 2020-11-19 22:14 | CT_ITS ---
STUDY: CT ABDOMEN AND PELVIS WITHOUT CONTRAST REASON FOR EXAM: Female, 30 years old. LT FLANK PAIN,FREQUENT AND PAINFUL URINATION,PT HAD PRIOR KIDNEY INFECTION,PREG TEST WAS NEG. -- PRIOR SURGERY FOR ENDOMETRIOSIS RADIATION DOSAGE (If Supplied By Facility): CTDIvol = ( 6.23 ) mGy, DLP = ( 301.74 ) mGycm TECHNIQUE: Transaxial images were obtained from the dome of the diaphragm to the symphysis pubis without oral contrast, and without intravenous contrast. Sagittal and coronal images were reconstructed. Individualized dose optimization techniques were used for this CT. COMPARISON: Renal ultrasound 05/03/2020 FINDINGS: The visualized lung bases are unremarkable. The visualized portions of the heart are within normal limits. Normal liver. Normal gallbladder and extrahepatic biliary system. Normal spleen. Normal pancreas. Normal bilateral adrenal glands. Normal right kidney. Normal left kidney. Normal visualized stomach. Normal small intestine. Normal colon. The appendix is visualized and appears normal. Normal abdominal aorta. Normal inferior vena cava. Normal retroperitoneum. Normal urinary bladder. The uterus is normal. There is a small umbilical hernia containing fat. Normal osseous structures. CT/Abdomen/Pelvis without Cont IMPRESSION: Normal unenhanced CT of the abdomen and pelvis. Electronically Signed: Shan Paul MD at 23:22 EST , Service support ,
[2020-11-19 23:24] VITALS: BP 104/69; PULSE 69; RESP 14; O2SAT 100
[2020-11-19] MEDS: Smz/Tmp Ds Tablet 1 TABLET PO (23:43)
[2020-11-22 17:20] LABS: T4 Free Direct 0.91 ng/dL (0.76-1.46); Thyroid Stim Hormone (TSH) 3.31 uIU/mL (0.358-3.74)
== END 2020-11-19 23:48 | disposition home or self-care (01) ==
PROVIDERS: Emergency Provider Student in an Organized Health Care Education/Training Program; PCP Family Medicine
DX: N12 Tubulo-interstitial nephritis, not specified as acute or chronic (principal)
CPT/HCPCS: 74176; 80048; 81001; 81025; 84439; 84443; 85025; 87086; 87088; 87186; 99283; A4216

== ENCOUNTER → 2020-12-25 14:42 | Outpatient (CLI) | payer MEDICAID, SELFPAY ==
[2020-12-25 18:02] LABS: Absolute Lymphocyte Count 1.27 X10^3/uL (0.83-4.51); Basophil# 0.04 X10^3/uL; Basophil% 0.7 % (0-1); Eosinophil# 0.04 X10^3/uL; Eosinophils% 0.7 % (0-5); Lymphocyte # 1.27 X10^3/ul (4.0); Lymphocyte % 21.7 % (19-41); Mean Corp Hgb Conc 32.5 g/dL (32-36); Mean Corpuscular Hgb 30.7 pg (27.0-32.0); Mean Corpuscular Volume 94.3 fL (81-99); Monocyte# 0.51 X10^3/uL; Monocyte% 8.7 % (0-10); NRBC Flagged by Analyzer 0 % (0-5); Neutrophil # 3.97 X10^3/uL (2.7-7.7); Platelet Count 180 K/mm3 (150-450); RBC Distribution Width CV 12.1 % (11.6-14.6); RBC Distribution Width SD 42.4 fl (35.1-43.9); Red Blood Count 4.24 M/mm3 (4.2-5.4); White Blood Count 5.8 K/mm3 (4.4-11.0)
[2020-12-25 19:00] LABS: ALB/GLOB Ratio 1.2 RATIO (0.9-2.4); AST(SGOT) 14 U/L (15-37); Alanine Aminotransfer ALT/SGPT 25 U/L (13-56); Albumin, Serum 4.4 g/dL (3.2-5.0); Alkaline Phosphatase 49 U/L (45-117); Anion Gap 7 (5-15); BUN 10 mg/dL (7-18); BUN/Creat Ratio 10.6 RATIO (10-20); Calcium,Total 9.8 mg/dL (8.5-10.1); Chloride 105 mmol/L (98-107); Creatinine, Serum 0.94 mg/dL (0.55-1.02); EST Glomerular Filtration Rate 74 mL/min (>60); Est Glom Filt Rate - Afr Amer 90 mL/min (>60); Globulin 3.6 g/dL (2.2-4.2); Glucose 78 mg/dL (74-106); Potassium 3.5 mmol/L (3.5-5.1); Sodium Level 138 mmol/L (136-145)
== END ==
PROVIDERS: PCP Family Medicine; Referring Provider Family Medicine; Visit Provider Family Medicine
DX: F41.1 Generalized anxiety disorder (principal)
CPT/HCPCS: 36415; 80053; 85025

== ENCOUNTER → 2021-04-27 | Outpatient (CLI) | payer MEDICAID, SELFPAY ==
[2021-03-12 09:06] VITALS: BMI 21.7
== END | disposition home or self-care (01) ==
LOC: LABSPEC 10:45
PROVIDERS: PCP Family Medicine; Referring Provider Family Medicine; Visit Provider Family Medicine
DX: Z01.818 Encounter for other preprocedural examination (principal)
CPT/HCPCS: 87635; U0005; U0003

== ENCOUNTER → 2021-07-12 | Outpatient (CLI) | payer MEDICAID, SELFPAY | END | disposition home or self-care (01) | LOC: LABSPEC 08:18 | PROVIDERS: PCP Family Medicine; Visit Provider Family Medicine | DX: Z20.822 Contact with and (suspected) exposure to COVID-19 (principal) | CPT/HCPCS: 87635; U0005; U0003 ==

== ENCOUNTER → 2021-10-16 14:40 | Outpatient (CLI) | payer MEDICAID, SELFPAY ==
[2021-10-16 15:41] LABS: Thyroid Stim Hormone (TSH) 1.79 uIU/mL (0.358-3.74)
[2021-10-22 13:39] LABS: HPV APTIMA, High Risk Negative (Negative)
== END ==
PROVIDERS: PCP Family Medicine; Referring Provider Obstetrics & Gynecology; Visit Provider Obstetrics & Gynecology
DX: Z12.4 Encounter for screening for malignant neoplasm of cervix (principal); N93.9 Abnormal uterine and vaginal bleeding, unspecified; N80.9 Endometriosis, unspecified; N76.0 Acute vaginitis
CPT/HCPCS: 36415; 84443; 87070; 87205; 87624; 88175; G0145

== ENCOUNTER → 2021-10-22 15:28 | Outpatient (CLI) | payer MEDICAID, SELFPAY ==
--- NOTE | 2021-10-22 15:30 | US_ITS ---
STUDY: ULTRASOUND OF THE FEMALE PELVIS - COMPLETE REASON FOR EXAM: Female, 31 years old. aub LMP: 10/04/2021 TECHNIQUE: Transabdominal and Transvaginal TECHNICAL QUALITY: Adequate. COMPARISON: None. FINDINGS: The uterus is anteverted and is in a midline position. The uterus measures 8.6 x 5.4 x 4.1 cm. Normal uterine cervix. The endometrium measures 5 mm in thickness, and is hyperechoic. There is no demonstrated endometrial mass. There is no demonstrated myometrial mass. I.U.D. - The patient does not have an I.U.D. The right ovary is visualized. The right ovary measures 3.4 x 2.4 cm. There is no right ovarian cyst or ovarian mass. There is no visualized right adnexal mass or complex lesion. There is normal arterial and normal venous vascularity. The left ovary is visualized. The left ovary measures 2.6 x 1.3 x 1.0 cm. There is no left ovarian cyst or ovarian mass. There is no visualized left adnexal mass or complex lesion. There is normal arterial and normal venous vascularity. There is no fluid in the cul-de-sac. The pre void volume of the bladder was ml. The post void volume of the bladder was ml. Polycystic ovary disease: No. US/Pelvic (Non ) IMPRESSION: Normal female pelvis. Electronically Signed: Martin Earl MD at 10:14 EST Tel , Service support ,
--- NOTE | 2021-10-22 15:30 | US_ITS ---
STUDY: ULTRASOUND OF THE FEMALE PELVIS - COMPLETE REASON FOR EXAM: Female, 31 years old. aub LMP: 10/04/2021 TECHNIQUE: Transabdominal and Transvaginal TECHNICAL QUALITY: Adequate. COMPARISON: None. FINDINGS: The uterus is anteverted and is in a midline position. The uterus measures 8.6 x 5.4 x 4.1 cm. Normal uterine cervix. The endometrium measures 5 mm in thickness, and is hyperechoic. There is no demonstrated endometrial mass. There is no demonstrated myometrial mass. I.U.D. - The patient does not have an I.U.D. The right ovary is visualized. The right ovary measures 3.4 x 2.4 cm. There is no right ovarian cyst or ovarian mass. There is no visualized right adnexal mass or complex lesion. There is normal arterial and normal venous vascularity. The left ovary is visualized. The left ovary measures 2.6 x 1.3 x 1.0 cm. There is no left ovarian cyst or ovarian mass. There is no visualized left adnexal mass or complex lesion. There is normal arterial and normal venous vascularity. There is no fluid in the cul-de-sac. The pre void volume of the bladder was ml. The post void volume of the bladder was ml. Polycystic ovary disease: No. US/Transvaginal Non- IMPRESSION: Normal female pelvis. Electronically Signed: Martin Earl MD at 10:14 EST Tel , Service support ,
== END ==
PROVIDERS: PCP Family Medicine; Referring Provider Obstetrics & Gynecology; Visit Provider Obstetrics & Gynecology
DX: N80.9 Endometriosis, unspecified (principal); N93.9 Abnormal uterine and vaginal bleeding, unspecified
CPT/HCPCS: 76830; 76856

== ENCOUNTER → 2021-11-01 | Outpatient (CLI) | payer MEDICAID, SELFPAY | END | disposition home or self-care (01) | LOC: LABSPEC 13:07 | PROVIDERS: PCP Family Medicine; Referring Provider Physician Assistant Medical; Visit Provider Physician Assistant Medical | DX: Z11.52 Encounter for screening for COVID-19 (principal) | CPT/HCPCS: 87635; U0003; U0005 ==

== ENCOUNTER 2022-05-17 17:51 | Emergency (ER) | payer MEDICAID, SELFPAY ==
[2022-05-17 17:52] VITALS: BP 114/87; PULSE 101; RESP 16; TEMP 36.7; O2SAT 97; BMI 21.7
[2022-05-17] MEDS: Ondansetron 4 MG/2 ML Vial IV (19:37)
[2022-05-17] MEDS: 0.9% Normal Saline 1,000 ML 150 ML IV (19:37)
[2022-05-17 19:40] LABS: Mucous, Urine 0 SEEN /hpf (<or=2+)
[2022-05-17 19:51] LABS: Color, Urine Yellow (Yellow); Glucose, Dipstick Normal (Normal); Ketone-Dipstick Negative (Negative); Leukocyte Esterase-Dipstick Negative /ul (Negative); Nitrite-Dipstick Negative (Negative); Occult Blood-Urine Negative /ul (Negative); Protein-Dipstick Negative (Negative); Urine Bilirubin Dipstick Negative (Negative); Urine Clarity Clear (Clear); Urine Urobilinogen Normal (Normal)
--- NOTE | 2022-05-17 19:54 | EX.ED.DYSGE1 ---
HPI History of Present Illness Chief Complaint: General Illness Informant: patient Onset/Context/Timing Onset: Yesterday Current Severity: Mild Maximum Severity: Mild Narrative Narrative: Patient presents secondary to body aches, chills, back pain. She states last evening she woke from sleep suddenly with nausea and vomiting. She had continued vomiting today and had a temperature of 101.2 this afternoon. She did take medication for fever approximately 3 hours prior to arrival. She does have some back pain right greater than left. She is a history of kidney infections in the past and this concerns her. She does note some recent frequency and some slight dysuria. She did take a COVID test at home today that was negative. She denies any URI symptoms. [facility] Medical History Anxiety Depression Endometriosis Home Medications bupropion HCl 150 mg 24 hr tablet, extended release (Wellbutrin XL) 200 mg PO QAM 10/16/21 [History Last Taken Unknown] propranolol 10 mg tablet 10 mg PO ONCE PRN 10/16/21 [History Last Taken Unknown] fluconazole 150 mg tablet (Diflucan) 150 mg PO .COMPLEX #7 tabs 01/08/22 [Rx Last Taken Unknown] medroxyprogesterone 10 mg tablet (Provera) 10 mg PO QDAY #10 tabs 01/08/22 [Rx Last Taken Unknown] spironolactone 100 mg tablet 50 mg PO DAILY 01/08/22 [History Last Taken Unknown] sulfamethoxazole 800 mg-trimethoprim 160 mg tablet (Bactrim DS) 1 tab PO BID #6 tabs 05/17/22 [Rx Last Taken Unknown] Allergy/AdvReac Type Severity Reaction Status Date / Time No Known Allergies Allergy Verified 05/17/22 17:54 Surgical History S/P laparoscopic procedure (~03/28/20) Social History Smoking Status: Never smoker alcohol intake: never substance use type: does not use caffeine: Yes what type of physical activity do you participate in: walking seatbelt use: always do you feel safe at home: Yes additional social history: [employer]- [employer] Patient works at [employer] ROS ROS ED Constitutional Constitutional ED: Reports chills and fever(s) Eyes Eyes: Denies change in vision or discharge from eye(s) ENT ENT ED: Denies discharge from eye(s), rhinorrhea or sore throat Cardiovascular Cardiovascular: Denies chest pain or palpitations Respiratory/Chest Respiratory/Chest: Denies cough or dyspnea Gastrointestinal Gastrointestinal: Reports abdominal pain, nausea and vomiting Genitourinary Genitourinary ED: Reports dysuria and urinary frequency; Denies difficulty urinating Musculoskeletal Musculoskeletal: Reports back pain and myalgias; Denies extremity pain Integumentary Denies Abrasions or rash Neurologic Neurologic: Denies headache(s) or weakness Allergic/Immunologic Allergic/Immunologic ED: Denies lip swelling or urticaria EXAM Physical Exam Const Vital Signs: 05/17/22 17:52 05/17/22 18:51 Temperature 98.1 F Temperature Source Temporal Pulse Rate 101 H Respiratory Rate 16 Respiratory Effort Normal Non-Labored Respiratory Pattern Normal Blood Pressure 114/87 H Blood Pressure Mean 96 Pulse Ox 97 Oxygen Delivery Method Room Air Positive well nourished and well developed General Appearance ED: well developed HEENT Reports normocephalic and head/scalp atraumatic Eyes PERRL and EOMs intact bilaterally Neck supple Chest Wall inspection of chest normal and palpation of chest normal Resp normal respiratory effort and clear to auscultation bilaterally Cardio regular rate and regular rhythm GI GI Narrative: Mild diffuse tenderness palpation. No guarding or rebound. Hypoactive but present bowel sounds. Palpation: soft Back/Spine Back/Spine Narrative: Mild CVA tenderness bilaterally. Extremity normal to inspection Neuro oriented x3 and no sensory deficits noted Sensorium / Orientation: alert Motor Exam: strength 5/5 throughout Psych mental status grossly normal Skin no rashes or lesions noted MDM MDM MDM Narrative Medical decision making narrative: Lab work and urinalysis obtained. Patient given Zofran for nausea. Lab Data Attestation: I reviewed the patient's lab results. Labs: Laboratory Results - last 24 hr 05/17/22 05/17/22 05/17/22 18:49 20:24 20:24 WBC 4.8 RBC 4.11 L Hgb 13.2 Hct 38.1 MCV 92.7 MCH 32.1 H MCHC 34.6 RDW Std Deviation 39.8 RDW Coeff of [place] 11.9 Plt Count 130 L MPV 12.0 Immature Gran % (Auto) 0.400 Neut % (Auto) 84.2 H Lymph % (Auto) 7.9 L [place] % (Auto) 7.3 Eos % (Auto) 0.0 Baso % (Auto) 0.2 Absolute Neuts (auto) 4.1 Absolute Lymphs (auto) 0.38 L Nucleated RBC % 0 Differential Comment SEE COMMENT Platelet Estimate SLT DEC RBC Morphology N CHROM Anisocytosis RARE Macrocytosis RARE Ovalocytes RARE Sodium 137 Potassium 3.3 L Chloride 106 Carbon Dioxide 23.0 Anion Gap 8 BUN 12 Creatinine 0.79 Estim Creat Clear Calc 96.59 Est GFR (MDRD) Af Amer 109 Est GFR (MDRD) Non-Af 90 BUN/Creatinine Ratio 15.2 Glucose 105 Calcium 9.1 Total Bilirubin 0.60 Direct Bilirubin 0.18 AST 23 ALT 27 Alkaline Phosphatase 42 L Total Protein 7.3 Albumin 4.0 Globulin 3.3 Lipase 64 L Serum , Qual Urine Color Yellow Urine Clarity Clear Urine pH 6.0 Ur Specific [place] 1.010 Urine Protein Negative Urine Glucose (UA) Normal Urine Ketones Negative Urine Occult Blood Negative Urine Nitrite Negative Urine Bilirubin Negative Urine Urobilinogen Normal Ur Leukocyte Esterase Negative Urine RBC 0-5 SEEN Urine WBC 0-5 SEEN Ur Squamous Epith Cells 5-10 SEEN Urine Bacteria 2+ Urine Mucus 0 SEEN 05/17/22 20:24 WBC RBC Hgb Hct MCV MCH MCHC RDW Std Deviation RDW Coeff of [place] Plt Count MPV Immature Gran % (Auto) Neut % (Auto) Lymph % (Auto) [place] % (Auto) Eos % (Auto) Baso % (Auto) Absolute Neuts (auto) Absolute Lymphs (auto) Nucleated RBC % Differential Comment Platelet Estimate RBC Morphology Anisocytosis Macrocytosis Ovalocytes Sodium Potassium Chloride Carbon Dioxide Anion Gap BUN Creatinine Estim Creat Clear Calc Est GFR (MDRD) Af Amer Est GFR (MDRD) Non-Af BUN/Creatinine Ratio Glucose Calcium Total Bilirubin Direct Bilirubin AST ALT Alkaline Phosphatase Total Protein Albumin Globulin Lipase Serum , Qual NEGATIVE Urine Color Urine Clarity Urine pH Ur Specific [place] Urine Protein Urine Glucose (UA) Urine Ketones Urine Occult Blood Urine Nitrite Urine Bilirubin Urine Urobilinogen Ur Leukocyte Esterase Urine RBC Urine WBC Ur Squamous Epith Cells Urine Bacteria Urine Mucus Treatment and Re-Evaluation Narrative: Staff had difficulty establishing an IV. She was able to be given Zofran but then her line blew. Labs were drawn but she was not given IV fluids. Lab work is unremarkable with white count of 4.8. Chemistry studies reveal mildly low potassium at 3.3. test is negative. Urinalysis shows 2+ bacteria, however 5-10 epithelial cells are noted. 0-5 white cells and no nitrites are noted. Patient does have a history of kidney infections and does have dysuria with some back pain. I will send her urine for culture but my suspicion is this is all contaminant. She may have a concomitant GI bug. She has Zofran at home that she can take. I will write her for 3 days of antibiotic. Discharge Plan Triage Chief Complaint: General Illness ED Provider: Brenda Pfeiffer Dx/Rx/DC Orders Clinical Impression: Bacteriuria, Nausea Prescriptions: New sulfamethoxazole-trimethoprim [Bactrim DS] 800-160 mg tablet 1 tab PO BID Qty: 6 0RF No Action spironolactone 100 mg tablet 50 mg PO DAILY bupropion HCl [Wellbutrin XL] 150 mg tablet extended release 24 hr 200 mg PO QAM propranolol 10 mg tablet 10 mg PO ONCE PRN medroxyprogesterone [Provera] 10 mg tablet 10 mg PO QDAY Qty: 10 9RF Rx Instructions: start cycle day 14 take daily for ten days fluconazole [Diflucan] 150 mg tablet 150 mg PO .COMPLEX Qty: 7 5RF Rx Instructions: 150 mg PO now and in 72 hours and then take weekly for 6 months Primary Care Provider: Jerry Atwood Referrals: Jerry Atwood MD [Primary Care Provider] - 1 Week if not improving Disposition Disposition: Home, Self Care
[2022-05-17 20:02] LABS: Red Blood Cells-Urine 0-5 SEEN /hpf (0-5); Squamous Epithelial Cells - UA 5-10 SEEN /hpf (5-10); White Blood Cells 0-5 SEEN /hpf (0-5)
[2022-05-17 20:03] LABS: Bacteria 2+ /hpf (None Seen)
[2022-05-17 20:37] LABS: Absolute Lymphocyte Count 0.38 X10^3/uL (0.83-4.51); Absolute Neutrophil Count 4.1 X10^3/uL (2.0-7.7); Basophil# 0.01 X10^3/uL; Basophil% 0.2 % (0-1); Hematocrit 38.1 % (37-47); Hemoglobin 13.2 g/dL (12.0-15.0); Lymphocyte # 0.38 X10^3/ul (0.83-4.51); Lymphocyte % 7.9 % (19-41); Mean Corp Hgb Conc 34.6 g/dL (32-36); Mean Corpuscular Hgb 32.1 pg (27.0-32.0); Mean Corpuscular Volume 92.7 fL (81-99); Monocyte# 0.35 X10^3/uL; Monocyte% 7.3 % (0-10); NRBC Flagged by Analyzer 0 % (0-5); Neutrophil # 4.05 X10^3/uL (2.7-7.7); Neutrophil % 84.2 % (47-70); POSITIVE DIFFERENTIAL YES; Platelet Count 130 K/mm3 (150-450); RBC Distribution Width CV 11.9 % (11.6-14.6); RBC Distribution Width SD 39.8 fl (35.1-43.9); Red Blood Count 4.11 M/mm3 (4.2-5.4); White Blood Count 4.8 K/mm3 (4.4-11.0)
[2022-05-17 20:42] LABS: Differential Indicated SCAN CRITERIA MET
[2022-05-17 20:59] LABS: Anisocytosis RARE; Platelet Estimate SLT DEC (ADEQ); Red Cell Morphology N CHROM NORMAL (NORM C&C)
[2022-05-17 21:00] LABS: Macrocytosis RARE; Ovalocyte RARE
[2022-05-17 21:17] LABS: Internal QC Validated? YES +Cl - CLEAR BKGD; Pregnancy, Serum, hCG Quali. NEGATIVE Negative
[2022-05-17 21:20] LABS: AST(SGOT) 23 U/L (15-37); Alanine Aminotransfer ALT/SGPT 27 U/L (13-56); Alkaline Phosphatase 42 U/L (45-117); Anion Gap 8 (5-15); BUN 12 mg/dL (7-18); BUN/Creat Ratio 15.2 RATIO (10-20); Bilirubin, Direct 0.18 mg/dL (0.00-0.30); Calcium,Total 9.1 mg/dL (8.5-10.1); Chloride 106 mmol/L (98-107); Creatinine, Serum 0.79 mg/dL (0.55-1.02); EST Glomerular Filtration Rate 90 mL/min (>60); Est Glom Filt Rate - Afr Amer 109 mL/min (>60); Estimated Creatinine Clearance 96.59 ml/min; Globulin 3.3 g/dL (2.2-4.2); Glucose 105 mg/dL (74-106); Lipase 64 U/L (73-393); Potassium 3.3 mmol/L (3.5-5.1); Protein, Total 7.3 g/dL (6.4-8.2); Sodium Level 137 mmol/L (136-145)
[2022-05-17] MEDS: Smz/Tmp Ds Tablet 1 TABLET PO (22:00)
[2022-05-17 22:07] VITALS: BP 110/78; PULSE 91; RESP 18
== END 2022-05-17 22:09 | disposition home or self-care (01) ==
PROVIDERS: Emergency Provider Emergency Medicine; PCP Family Medicine; Visit Provider Emergency Medicine
DX: R82.71 Bacteriuria (principal); R11.2 Nausea with vomiting, unspecified; R68.83 Chills (without fever); M54.9 Dorsalgia, unspecified; F41.9 Anxiety disorder, unspecified; F32.A Depression, unspecified; Z79.899 Other long term (current) drug therapy
CPT/HCPCS: 80048; 80076; 81001; 83690; 84703; 85025; 96361; 96374; 99283; J7030; A4216; J2405

== ENCOUNTER → 2023-01-10 | Outpatient (CLI) | payer BC, MEDICAID, SELFPAY ==
[2023-01-10 17:53] LABS: Absolute Lymphocyte Count 1.64 X10^3/uL (0.83-4.51); Absolute Neutrophil Count 2.5 X10^3/uL (2.0-7.7); Basophil# 0.03 X10^3/uL; Basophil% 0.6 % (0-1); Eosinophil# 0.03 X10^3/uL; Eosinophils% 0.6 % (0-5); Hematocrit 40.7 % (37-47); Hemoglobin 13.6 g/dL (12.0-15.0); Lymphocyte # 1.64 X10^3/ul (0.83-4.51); Lymphocyte % 35.4 % (19-41); Mean Corp Hgb Conc 33.4 g/dL (32-36); Mean Corpuscular Hgb 31.9 pg (27.0-32.0); Mean Corpuscular Volume 95.5 fL (81-99); Mean Platelet Vol. 12.7 fl (6.2-12.0); Monocyte# 0.46 X10^3/uL; Monocyte% 9.9 % (0-10); NRBC Flagged by Analyzer 0 % (0-5); Neutrophil # 2.46 X10^3/uL (2.7-7.7); Neutrophil % 53.3 % (47-70); Platelet Count 176 K/mm3 (150-450); RBC Distribution Width CV 12.3 % (11.6-14.6); RBC Distribution Width SD 43.4 fl (35.1-43.9); Red Blood Count 4.26 M/mm3 (4.2-5.4); White Blood Count 4.6 K/mm3 (4.4-11.0)
[2023-01-10 18:07] LABS: Vitamin B12 1087 pg/mL (211-911)
[2023-01-10 18:55] LABS: ALB/GLOB Ratio 1.3 RATIO (0.9-2.4); AST(SGOT) 16 U/L (15-37); Alanine Aminotransfer ALT/SGPT 32 U/L (13-56); Albumin, Serum 4.2 g/dL (3.2-5.0); Alkaline Phosphatase 42 U/L (45-117); Anion Gap 7 (5-15); BUN 15 mg/dL (7-18); BUN/Creat Ratio 18.8 RATIO (10-20); Calcium,Total 9.6 mg/dL (8.5-10.1); Chloride 104 mmol/L (98-107); EST Glomerular Filtration Rate 88 mL/min (>60); Est Glom Filt Rate - Afr Amer 107 mL/min (>60); Ferritin 22 ng/mL (8-252); Globulin 3.3 g/dL (2.2-4.2); Glucose 83 mg/dL (74-106); Magnesium 1.8 mg/dL (1.6-2.6); Potassium 3.6 mmol/L (3.5-5.1); Protein, Total 7.5 g/dL (6.4-8.2); Sodium Level 138 mmol/L (136-145); T4 Free Direct 0.97 ng/dL (0.76-1.46); Thyroid Stim Hormone (TSH) 1.97 uIU/mL (0.358-3.74)
[2023-01-13 16:09] LABS: PROEL- A/G Ratio 1.5 (0.7-1.7); PROEL- Albumin 4.3 g/dL (2.9-4.4); PROEL- Alpha-1 Globulin 0.2 g/dL (0.0-0.4); PROEL- Alpha-2 Globulin 0.6 g/dL (0.4-1.0); PROEL- Globulin, Total 2.8 g/dL (2.2-3.9); PROEL- TOTAL PROTEIN 7.1 g/dL (6.0-8.5)
[2023-01-13 16:56] LABS: ANTINUCLEAR ANTIBODIES DIRECT Negative (Negative)
== END | disposition home or self-care (01) ==
LOC: MFPLAB 14:50
PROVIDERS: PCP Family Medicine; Referring Provider Family Medicine; Visit Provider Family Medicine
DX: G47.9 Sleep disorder, unspecified (principal); R25.1 Tremor, unspecified
CPT/HCPCS: 36415; 80053; 82607; 82728; 82746; 83735; 84165; 84439; 84443; 85025; 86038; 86225; 86235

== ENCOUNTER → 2023-06-23 | Outpatient (CLI) | payer MEDICAID, SELFPAY ==
[2023-06-23 14:23] LABS: Prolactin 4.8 ng/mL
[2023-06-27 14:10] LABS: 17-Hydroxyprogesterone 33 ng/dL (.)
[2023-07-03 02:07] LABS: Testosterone Free 1.7 pg/mL (0.0-4.2)
== END | disposition home or self-care (01) ==
PROVIDERS: PCP Family Medicine; Referring Provider Obstetrics & Gynecology; Visit Provider Obstetrics & Gynecology
DX: N80.9 Endometriosis, unspecified (principal); N93.9 Abnormal uterine and vaginal bleeding, unspecified
CPT/HCPCS: 36415; 83498; 84146; 84402; 84443

== ENCOUNTER → 2023-07-21 | Outpatient (CLI) | payer MEDICAID, SELFPAY ==
[2023-07-21 12:23] LABS: Absolute Lymphocyte Count 1.21 X10^3/uL (0.83-4.51); Absolute Neutrophil Count 2.3 X10^3/uL (2.0-7.7); Basophil# 0.02 X10^3/uL; Basophil% 0.5 % (0-1); Eosinophil# 0.03 X10^3/uL; Eosinophils% 0.8 % (0-5); Hematocrit 39.5 % (37-47); Hemoglobin 13.4 g/dL (12.0-15.0); Lymphocyte # 1.21 X10^3/ul (0.83-4.51); Lymphocyte % 30.9 % (19-41); Mean Corp Hgb Conc 33.9 g/dL (32-36); Mean Corpuscular Hgb 31.9 pg (27.0-32.0); Mean Platelet Vol. 12.4 fl (6.2-12.0); Monocyte# 0.31 X10^3/uL; Monocyte% 7.9 % (0-10); NRBC Flagged by Analyzer 0 % (0-5); Neutrophil # 2.33 X10^3/uL (2.7-7.7); Neutrophil % 59.6 % (47-70); Platelet Count 175 K/mm3 (150-450); RBC Distribution Width CV 11.9 % (11.6-14.6); RBC Distribution Width SD 41.1 fl (35.1-43.9); White Blood Count 3.9 K/mm3 (4.4-11.0)
[2023-07-21 12:26] LABS: Erythrocyte Sedimentation Rate 1 mm/hr (0-30)
[2023-07-21 13:14] LABS: ALB/GLOB Ratio 1.3 RATIO (0.9-2.4); AST(SGOT) 21 U/L (15-37); Alanine Aminotransfer ALT/SGPT 29 U/L (13-56); Albumin, Serum 4.3 g/dL (3.2-5.0); Alkaline Phosphatase 57 U/L (45-117); Anion Gap 7 (5-15); BUN 15 mg/dL (7-18); BUN/Creat Ratio 18.6 RATIO (10-20); CRP < 2.90 mg/L (0.0-3.0); Calcium,Total 9.8 mg/dL (8.5-10.1); Chloride 106 mmol/L (98-107); Creatinine, Serum 0.81 mg/dL (0.55-1.02); EST Glomerular Filtration Rate 87 mL/min (>60); Est Glom Filt Rate - Afr Amer 106 mL/min (>60); Ferritin 33 ng/mL (8-252); Globulin 3.3 g/dL (2.2-4.2); Glucose 92 mg/dL (74-106); Potassium 3.8 mmol/L (3.5-5.1); Protein, Total 7.6 g/dL (6.4-8.2); Sodium Level 138 mmol/L (136-145); Thyroid Stim Hormone (TSH) 1.45 uIU/mL (0.358-3.74)
[2023-07-21 21:28] LABS: Syphilis Antibodies Non-reactive
[2023-07-22 11:08] LABS: Lyme Scn Total Ab w/Rflx Negative (Negative)
[2023-07-22 12:09] LABS: ANTINUCLEAR ANTIBODIES DIRECT Negative (Negative)
== END | disposition home or self-care (01) ==
LOC: MFPLAB 10:41
PROVIDERS: PCP Family Medicine; Visit Provider Family Medicine
DX: L50.9 Urticaria, unspecified (principal); E61.1 Iron deficiency
CPT/HCPCS: 36415; 80053; 82728; 84443; 85025; 85652; 86038; 86140; 86618; 86780

== ENCOUNTER → 2024-02-13 | Outpatient (CLI) | payer MEDICAID, SELFPAY ==
[2024-02-13 18:11] LABS: Erythrocyte Sedimentation Rate 6 mm/hr (0-30)
[2024-02-13 18:17] LABS: CRP < 2.90 mg/L (0.0-3.0)
[2024-02-16 15:07] LABS: ANTINUCLEAR ANTIBODIES DIRECT Negative (Negative)
[2024-02-17 14:09] LABS: QNTFERON TB Mitogen Value > 10.00 IU/mL (.); QNTFERON TB Nil Value 0.02 IU/mL (.); QNTFERON TB1+ Ag Value 0.02 IU/mL (.); QNTFERON TB2+ Ag Value 0.03 IU/mL (.); QNTIFERON TB Positive Criteria Negative (Negative)
== END | disposition home or self-care (01) ==
LOC: MTLAB 15:59
PROVIDERS: PCP Family Medicine; Referring Provider Family Medicine; Visit Provider Family Medicine
DX: R61 Generalized hyperhidrosis (principal)
CPT/HCPCS: 36415; 85652; 86038; 86140; 86480

== ENCOUNTER → 2024-02-24 | Outpatient (CLI) | payer MEDICAID, SELFPAY ==
[2024-02-24 20:23] LABS: ALB/GLOB Ratio 1.2 RATIO (0.9-2.4); AST(SGOT) 34 U/L (15-37); Alanine Aminotransfer ALT/SGPT 57 U/L (13-56); Albumin, Serum 4.2 g/dL (3.2-5.0); Alkaline Phosphatase 51 U/L (45-117); Anion Gap 7 (5-15); BUN 10 mg/dL (7-18); BUN/Creat Ratio 11.1 RATIO (10-20); Chloride 106 mmol/L (98-107); EST Glomerular Filtration Rate 77 mL/min (>60); Est Glom Filt Rate - Afr Amer 93 mL/min (>60); Globulin 3.5 g/dL (2.2-4.2); Glucose 86 mg/dL (74-106); Luteinizing Hormone 57.4 mIU/mL; Potassium 3.8 mmol/L (3.5-5.1); Prolactin 4.8 ng/mL; Protein, Total 7.7 g/dL (6.4-8.2); Sodium Level 138 mmol/L (136-145)
[2024-02-26 12:09] LABS: ANTINUCLEAR ANTIBODIES DIRECT Negative (Negative); HCG BETA-SUBUNIT QUANT. < 1 mIU/mL (.)
== END | disposition home or self-care (01) ==
LOC: MFPLAB 12:01
PROVIDERS: PCP Family Medicine; Visit Provider Family Medicine
DX: N64.4 Mastodynia (principal); N91.1 Secondary amenorrhea; R61 Generalized hyperhidrosis
CPT/HCPCS: 82024; 36415; 80053; 83001; 83002; 84146; 84702; 86038

== ENCOUNTER → 2024-03-25 | Outpatient (CLI) | payer MEDICAID, SELFPAY ==
[2024-03-25 12:25] LABS: Absolute Lymphocyte Count 0.95 X10^3/uL (0.83-4.51); Basophil# 0.03 X10^3/uL; Basophil% 0.5 % (0-1); Eosinophil# 0.06 X10^3/uL; Eosinophils% 1.1 % (0-5); Hematocrit 40.1 % (37-47); Hemoglobin 13.3 g/dL (12.0-15.0); Lymphocyte # 0.95 X10^3/ul (0.83-4.51); Lymphocyte % 17.1 % (19-41); Mean Corp Hgb Conc 33.2 g/dL (32-36); Mean Corpuscular Hgb 31.5 pg (27.0-32.0); Monocyte# 0.51 X10^3/uL; Monocyte% 9.2 % (0-10); NRBC Flagged by Analyzer 0 % (0-5); Neutrophil # 4.01 X10^3/uL (2.7-7.7); Neutrophil % 71.9 % (47-70); Platelet Count 184 K/mm3 (150-450); RBC Distribution Width CV 12.1 % (11.6-14.6); RBC Distribution Width SD 42.1 fl (35.1-43.9); Red Blood Count 4.22 M/mm3 (4.2-5.4); White Blood Count 5.6 K/mm3 (4.4-11.0)
[2024-03-25 13:05] LABS: ALB/GLOB Ratio 1.2 RATIO (0.9-2.4); AST(SGOT) 32 U/L (15-37); Alanine Aminotransfer ALT/SGPT 59 U/L (13-56); Alkaline Phosphatase 52 U/L (45-117); Anion Gap 7 (5-15); BUN 14 mg/dL (7-18); BUN/Creat Ratio 15.3 RATIO (10-20); Calcium,Total 10.3 mg/dL (8.5-10.1); Chloride 106 mmol/L (98-107); Creatinine, Serum 0.91 mg/dL (0.55-1.02); EST Glomerular Filtration Rate 75 mL/min (>60); Est Glom Filt Rate - Afr Amer 91 mL/min (>60); Globulin 3.4 g/dL (2.2-4.2); Glucose 88 mg/dL (74-106); Potassium 4.2 mmol/L (3.5-5.1); Protein, Total 7.4 g/dL (6.4-8.2); Sodium Level 139 mmol/L (136-145)
[2024-03-25 16:39] LABS: Color, Urine Yellow (Yellow); Glucose, Dipstick Normal (Normal); Ketone-Dipstick Negative (Negative); Leukocyte Esterase-Dipstick Negative /ul (Negative); Nitrite-Dipstick Negative (Negative); Occult Blood-Urine Negative /ul (Negative); Protein-Dipstick Negative (Negative); Specific Gravity, Urine 1.015 (1.002-1.030); Urine Bilirubin Dipstick Negative (Negative); Urine Clarity Clear (Clear); Urine Urobilinogen Normal (Normal); Urine pH 6.5 (5.0 - 8.0)
== END | disposition home or self-care (01) ==
LOC: MFPLAB 11:03
PROVIDERS: PCP Family Medicine; Visit Provider Family Medicine
DX: E28.319 Asymptomatic premature menopause (principal); N39.0 Urinary tract infection, site not specified
CPT/HCPCS: 36415; 80053; 81002; 82670; 85025; 87086

== ENCOUNTER → 2024-05-31 | Outpatient (CLI) | payer MEDICAID, SELFPAY ==
--- NOTE | 2024-05-31 16:38 | US_ITS ---
STUDY: ULTRASOUND OF THE FEMALE PELVIS - COMPLETE REASON FOR EXAM: Female, 33 years old. Premature ovarian failure LMP: Unknown. TECHNIQUE: Transabdominal and Transvaginal TECHNICAL QUALITY: Adequate. COMPARISON: Comparison is made with prior study dated October 22, 2021. FINDINGS: The uterus is anteverted and is in a midline position. The uterus measures 7.7 cm x 4.8 cm x 3.7 cm. Normal uterine cervix. The endometrium measures 4.6 mm in thickness, and is hyperechoic. There is no demonstrated endometrial mass. There is no demonstrated myometrial mass. I.U.D. - The patient does not have an I.U.D. The right ovary is visualized. The right ovary measures 2.5 cm x 1.6 x 1.6 cm. There is no right ovarian cyst or ovarian mass. There is no visualized right adnexal mass or complex lesion. There is normal arterial and normal venous vascularity. The left ovary is visualized. The left ovary measures 2.3 cm x 2.3 cm x 1.8 cm. There is no left ovarian cyst or ovarian mass. There is no visualized left adnexal mass or complex lesion. There is normal arterial and normal venous vascularity. There is no fluid in the cul-de-sac. The pre void volume of the bladder was 464 ml. US/Pelvic w/ Transvaginal IMPRESSION: Normal female pelvis. Electronically Signed: Toby Reece MD at 15:38 EDT ,
== END | disposition home or self-care (01) ==
LOC: US 16:38
PROVIDERS: PCP Family Medicine; Referring Provider Obstetrics & Gynecology; Visit Provider Obstetrics & Gynecology
DX: E28.39 Other primary ovarian failure (principal)
CPT/HCPCS: 76830; 76856

== ENCOUNTER → 2024-06-22 | Outpatient (CLI) | payer MEDICAID, SELFPAY ==
[2024-06-22 15:14] LABS: Hemoglobin A1c 4.9 % (3.8-5.6)
[2024-06-22 15:32] LABS: Estradiol 252.2 pg/mL; Follicle Stimulating Hormone 6.2 mIU/mL; Luteinizing Hormone 5.4 mIU/mL
[2024-06-24 16:10] LABS: Anti-Thyroglobulin AB < 1.0 IU/mL (0.0-0.9); Thyroglobulin, Serum Qt. 10.9 ng/mL (1.5-38.5); Thyroid Peroxidase AB < 9 IU/mL (0-34)
[2024-06-28 09:07] LABS: 17-Hydroxyprogesterone 75 ng/dL (.)
== END | disposition home or self-care (01) ==
PROVIDERS: PCP Family Medicine; Referring Provider Obstetrics & Gynecology; Visit Provider Obstetrics & Gynecology
DX: E28.39 Other primary ovarian failure (principal)
CPT/HCPCS: 36415; 82670; 83001; 83002; 83036; 83498; 84432; 84443; 86376; 86800

== ENCOUNTER → 2024-09-24 | Outpatient (CLI) | payer BC, SELFPAY ==
[2024-09-24 12:54] LABS: Estradiol 63.6 pg/mL; Follicle Stimulating Hormone 61.5 mIU/mL; Luteinizing Hormone 56.4 mIU/mL
[2024-09-25 04:08] LABS: PROGESTERONE 0.4 ng/mL (.)
== END | disposition home or self-care (01) ==
LOC: BWCLAB 11:22
PROVIDERS: PCP Family Medicine; Referring Provider Obstetrics & Gynecology; Visit Provider Obstetrics & Gynecology
DX: E28.39 Other primary ovarian failure (principal)
CPT/HCPCS: 36415; 82670; 83001; 83002; 84144

== ENCOUNTER → 2024-11-23 | Outpatient (CLI) | payer BC, SELFPAY ==
--- NOTE | 2024-11-23 14:28 | BD_ITS ---
STUDY: DUAL ENERGY X-RAY ABSORPTIOMETRY / DXA REASON FOR EXAM: Female, 34 years old. Premature ovarian failure -- POF TECHNIQUE: Bone Mineral Density (BMD) measurements of lumbar spine and bilateral hips were obtained. COMPARISON: None. FINDINGS: Lumbar Spine (L1-L4): g/cm2 (0.983) / T-score (-0.6) / Z-score (-0.5) Findings are suggestive of normal bone density with a low fracture risk. Left Femur Total: g/cm2 (0.882) / T-score (-0.5) / Z-score (-0.4) Left Femoral Neck: g/cm2 (0.802) / T-score (-0.4) / Z-score (-0.3) Right Femur Total: g/cm2 (0.906) / T-score (-0.3) / Z-score (-0.2) Right Femoral Neck: g/cm2 (0.847) / T-score (0.0) / Z-score (0.1) BD/Dexa Bone Density Study IMPRESSION: The patient is considered normal as outlined below according to World Peter Organization (WHO) criteria with a low fracture risk. Reference Information: The T-score is the number of standard deviations above or below the standard which is normal for young adults at their peak bone mineral density. The World Health Organization (WHO) interprets the T-scores as follows: Above -1 Normal bone density Between -1 and -2.5 Osteopenia Equal to / or below -2.5 Osteoporosis As a practical clinical guideline, osteopenia may be graded as follows: Mild -1 through -1.5 Moderate -1.6 through -2.0 Severe -2.1 through -2.4 The Z-score is the number of standard deviations above or below age-matched controls. A Z-score of less than -1.5 would be considered abnormal. References: 1. NIH Osteoporosis and Related Bone Diseases www osteo.org 2. International Society for Clinical Densitometry www iscd.org 3. National Osteoporosis Foundation www nof.org Electronically Signed: Toby Reece MD at 14:31 EST ,
== END | disposition home or self-care (01) ==
PROVIDERS: PCP Family Medicine; Referring Provider Obstetrics & Gynecology; Visit Provider Obstetrics & Gynecology
DX: E28.39 Other primary ovarian failure (principal)
CPT/HCPCS: 77080

== ENCOUNTER → 2025-05-03 | Outpatient (CLI) | payer BC, SELFPAY ==
[2025-05-05 04:07] LABS: PROGESTERONE 0.2 ng/mL (.)
== END | disposition home or self-care (01) ==
LOC: MFPLAB 14:39
PROVIDERS: PCP Family Medicine; Referring Provider Family Medicine; Visit Provider Family Medicine
DX: N95.9 Unspecified menopausal and perimenopausal disorder (principal)
CPT/HCPCS: 36415; 82627; 82670; 83516; 84144; 84403; 82626

== ENCOUNTER → 2025-05-25 | Outpatient (CLI) | payer BC, SELFPAY ==
[2025-05-25 20:40] LABS: CORTISOL PM 5.78 ug/dL (2.68-10.50); Free T3 3.0 pg/mL (2.18-3.98)
[2025-05-30 12:52] LABS: Thyroglobulin, Serum Qt. 9.7 ng/mL (1.5-38.5)
== END | disposition home or self-care (01) ==
LOC: MFPLAB 14:56
PROVIDERS: PCP Family Medicine; Referring Provider Family Medicine; Visit Provider Family Medicine
DX: N95.9 Unspecified menopausal and perimenopausal disorder (principal)
CPT/HCPCS: 36415; 82533; 84432; 84481; 84482; 86376; 86800